=== PATIENT | male | born 1955 ===

== ENCOUNTER 2025-05-28 21:18 | Inpatient (IN) | payer OTHER, SELFPAY ==
--- OUTSIDE RECORDS SUMMARY | 2025-05-28 21:27 | XMS_ITS | Clinical Summary ---
Author Organization [facility] Address [address] [place] [address] Care Team Providers Care Manager Code Name Role Phone Azul Kimble Primary Care Provider [phone]- [phone] Social History Tobacco Use Types Packs/Day Years Used Date Smoking Tobacco: Never Assessed Sex and Gender Information Value Date Recorded Sex Assigned at Male 03/23/2024 1:49 PM EDT Legal Sex Male 4:58 AM EST Gender Identity Male 03/23/2024 1:49 PM EDT Sexual Orientation Not on file Plan of Treatment Not on file Insurance [place] Member Subscriber Plan / Payer (Ef fective 2024-Present) Name:Gm Camilo Relation to Subscriber:Self Name:Gm Camilo Payer ID:Not on file Group ID:Not on file Type:Other Address: ATTENTION: CLAIMS [address] [place] [id number] [place] [address] [facility] [place] [facility] SENIOR Care Teams Manager Code Relationship Specialty Start Date End Date Azul Kimble PA [address] [place] [id number] PCP - General Physician Paper Mill Supervisor 03/23/24
[2025-05-28 21:46] VITALS: BMI 26.7
[2025-05-28 21:47] VITALS: BP 126/75; PULSE 64; RESP 16; TEMP 36; O2SAT 97
--- NOTE | 2025-05-29 01:18 | PC.NURSE ---
Admission Note Gm Camilo, a 69-year-old man, was presented to [facility] ED via ambulance on Section-12A, from his apartment with chief complaints of erratic behavior and paranoid delusion thinking police are after him for murder investigation that he didn?t commit. EMS found a patient agitated, disheveled, and self care deficit. The patient has a medical and psychiatric history of? 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 Gm arrived on our unit with EMS on strecher at 2034 on 05/28/25, Section- 12B, with an admitting diagnosis of? MDD. He is a full-code. He is alert and oriented, times four. Behaviour pleasant but appears frustrated. Thought content logical/clear, thought process clear. Mood depressed. Affect flat. Denied SI/HI/AVH, depression, and anxiety. Skin assessed skin abrasion on Left-elbow/bilateral knee/left palm from fall.? Med reconciliation was completed based on a pharmacy claim history and medical record/pending provider?s approval. He is not on any psychotropic medication.? He is independent of ambulation and ADL care. VSS. Labs unremarkable. Gm refused to sign a treatment plan, safety tool, belonging list, and release paper. Contraband searched. Gm is on for 5-minutes for a safety check.
--- NOTE | 2025-05-29 08:24 | HO.PM.IMCN ---
History of Present Illness Data of Consult Service Date: 05/29/25 Primary Care Provider: Isabel Physician HPI Reason for consult: Medical consult 69-year-old male with a past medical history of HIV with HIV related illnesses including Kaposi sarcoma, rectal CA, chronic kidney disease, hyperlipidemia, history of GI bleed rectal CA and depression. There was a leak coming from the patient's home and when they tried to gain entry into his house he was found to be hiding and agitated. There was a concern for his safety in the he was placed on a section 12 and brought to [facility] Emergency room for further evaluation. He is admitted to [facility] for stabilization. Notably patient was reporting that he was misdiagnosed with HIV, and reports that he was not taking medications however there were recent refills were his HIV regime. CT head was negative for any acute pathology. Chest x-ray was negative for any acute abnormality. Basic metabolic panel without any evidence of imbalance, LFTs were within normal limits. CBC was within normal limits. Negative blood alcohol level. His ESR and CRP within normal limits. Negative for syphilis. On exam he has no concerns except for the abrasions at he has on both knees in his hands from a fall. Wishes to see a wound nurse regarding this. He denies any shortness of breath, dizziness, lightheadedness or any other concerning symptoms. Reports that he has not had breakfast, reported to nursing. Review of Systems Review of Systems: Denies any shortness of breath, chest pain, palpitations, dizziness, lightheadedness, headaches, dysuria, abdominal pain or discomfort, nausea, vomiting or diarrhea. Denies Chills, body aches, muscle aches, fatigue or weight loss. PMFSH Social History Household Members: None Housing: Apartment Do you presently have visiting nurse or other home services: No Patient Tobacco Use Status: Never used Tobacco e-Cigarette/Vaping Use: Never Used Have you been hit, kicked, punched, or otherwise hurt by someone within the past year? If so, by whom?: No Do you feel safe in your current relationship?: No Is there a partner from a previous relationship who is making you feel unsafe now?: No Are you made to feel afraid or neglected: No Advance Directives: No Advance Directives Information Provided: No Do you have a plan to hurt others: No Plan Recently lost weight without trying: Unsure How much weight loss: Unsure Eating poorly because of decreased appetite: No Nutrition screen score: 4 Nutrition Risks: No Nutritional Risk Poor oral hygiene: No Meds Allergies Allergy/AdvReac Type Severity Reaction Status Date / Time lamivudine AdvReac Severe Rash Verified 05/28/25 21:26 nelfinavir AdvReac Severe Gastrointestinal Verified 05/28/25 21:27 Upset sulfamethoxazole (From AdvReac Severe Gastrointestinal Verified 05/28/25 21:29 Sulfamethoxazole-Trimethoprim) Upset trimethoprim (From AdvReac Severe Gastrointestinal Verified 05/28/25 21:29 Sulfamethoxazole-Trimethoprim) Upset zidovudine AdvReac Severe Rash Verified 05/28/25 21:26 efavirenz AdvReac Confusion Verified 05/28/25 21:25 Active Medications: Current Medications Acetaminophen (Acetaminophen 325 Mg Tablet) 650 mg PO Q6H PRN PRN Reason: Headache/Pain, Scale 1-10 Acyclovir (Acyclovir 800 Mg Tablet) 800 mg PO BID CAMERON Al Hydroxide/Mg Hydroxide (Magnesium Hydrox/Alum Hydrox 30 Ml Oral.Susp) 30 ml PO Q6H PRN PRN Reason: Heartburn/Nausea Dolutegravir Sodium (Dolutegravir Sodium 50 Mg Tablet) 50 mg PO DAILY CAMERON Emtricitabine/Tenofovir (Emtricitabin/Tenofovir Df 200/300 Tablet) 1 tab PO DAILY CAMERON Magnesium Hydroxide (Milk Of Magnesia 30 Ml Oral.Susp) 30 ml PO DAILY PRN PRN Reason: Constipation Trazodone HCl (Trazodone Hcl 50 Mg Tablet) 50 mg PO BEDTIME MRX1 PRN PRN Reason: Insomnia Home Medications ?Medication ?Instructions ?Recorded ?Confirmed ?Last Taken ?Type acyclovir 800 mg tablet 800 mg PO BID 05/28/25 05/28/25 05/23/25 08:00 History dolutegravir 50 mg tablet (Tivicay) 50 mg PO DAILY 05/28/25 05/28/25 05/23/25 History emtricitabine 200 mg-tenofovir 1 tab PO DAILY 05/28/25 05/28/25 05/23/25 History disoproxil fumarate 300 mg tablet Physical Exam Vital Signs and Narrative: Vital Signs: Last Vital Signs Temp 96.8 F 05/28/25 21:47 Pulse 64 05/28/25 21:47 Resp 16 05/28/25 21:47 BP 126/75 05/28/25 21:47 Pulse Ox 97 05/28/25 21:47 O2 Del Method Room Air 05/28/25 21:47 BMI result Body Mass Index 26.7 CONST: Alert and oriented, in NAD. Well nourished HEENT: Normocephalic, atraumatic, MMM, Eyes clear, Neck supple RESP: Lungs clear, RRR even and regular HEART:,RRR, S1, S2. No murmur, no edema GI:Abdomen Soft NT, ND. + BS times four :Deferred SKIN: Warm dry and intact, abrasions noted to right and left knee, bilateral hands and diallo NEURO:CN II-XII Intact bilaterally, Sensation intact. Speech clear PSYCH: Normal affect Assessment and Plan (1) Stage 3 chronic kidney disease: Status: Acute Plan 69-year-old male with past medical history of chronic kidney disease stage 3, HIV with HIV related illnesses including Kaposi sarcoma, rectal CA, hyperlipidemia, history of GI bleed and depression presented to [facility] ER on a section 12 after unspecified psychosis. Depression with psychosis Treatment per psychiatric team HIV Well controlled based on undetectable via, CD4 count in the 300s. Intermittently declines as a RT however he has undetectable level. Continue current regime History of anal cancer treated in the past-treated If patient's renal function worsens consider consult with ID regarding a change in regimen if needed Chronic kidney disease stage III Baseline creatinine 1 0.1-1.2 Continue to follow, avoid nephrotoxins History of hyperlipidemia Lipid panel within acceptable range Not on medication currently Thank you for allowing me to participate in the care of this patient. Will follow as needed, please notify medical provider with any changes in condition or concerns.
[2025-05-29 08:25] LABS: Hemoglobin A1C 116.1522 umol/L; Total Hemoglobin (HGBA1C) 3871.0509 umol/L
[2025-05-29 09:12] LABS: Cholesterol 176 mg/dL (<200); HDL Cholesterol 30 mg/dL (>40); Magnesium 2.2 mg/dL (1.6-2.6); Triglycerides 139 mg/dL (<150)
[2025-05-29 09:18] LABS: Free T4 (Free Thyroxine) 1.00 ng/dL (0.71-1.85); Thyroid Stimulating Hormone 1.50 uIU/mL (0.32-4.0)
[2025-05-29 09:27] LABS: Folate 7.5 ng/mL (> or = 4.0); Vitamin B12 389 pg/mL (200-900)
[2025-05-29 09:28] VITALS: BP 162/81; PULSE 66; RESP 18; TEMP 36.6; O2SAT 96
[2025-05-29] MEDS: Emtricitabin/Tenofovir DF 200/300 TABLET 1 TAB PO (09:30)
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
[2025-05-29 20:00] VITALS: BP 96/68; PULSE 81; RESP 16; TEMP 35.6; O2SAT 98
[2025-05-30 08:00] VITALS: BP 135/71; PULSE 65; RESP 16; TEMP 36.7; O2SAT 96
[2025-05-30] MEDS: Emtricitabin/Tenofovir DF 200/300 TABLET 1 TAB PO (10:11)
--- NOTE | 2025-05-30 15:53 | HO.WOUND ---
Wound Consult: Initial 69yr old?male admitted to [facility] on 05/28/25 - See progress notes and H&P for detailed history.? Wound consult placed for abrasions from a fall prior to admission.? Arrival to bedside patient was not agreeable to assessment and photo documentation.? He reports the abrasions were recently dressing with bandaids and he does not need them checked again. Spoke to direct care nurse - she reports wounds were assessed and cleansed earlier today, appear superficial and clean , no concerns at this time. Bandaids applied to wounds to Left Elbow, Left Palm and Bilateral knees. No new topical recommendations needed at this time. Please reconsult inpatient wound care nurse if assessment is needed or wounds worsen.
--- NOTE | 2025-05-30 16:32 | P.PNPSI_ITS ---
Subjective Subjective Date of Service: 05/30/25 Reason For Visit: unspecified psychotic disorder Subjective Notes: Section 12B Interim History: Pt slept through the night. He would not come out of this room for meals due to paranoid ideas. He was hesitant to eat food brought to him but did eat. He denies SI/HI. No aggression towards self or others. declines risperidone, but taking antiretroviral medications. although pt symptomatic no safety concerns at this time to file against his will at the time sect 12b is up. Review of Systems Review of Systems He denies chest pain No SOB No abdominal pain No diarrhea or constipation laceration on both knees- covered with bandage. Mental Status Exam Mental Status Exam Narrative: Appearance: wearing hospital gown, fair hygiene, in NAD Behavior: cooperative, but guarded Psychomotor: no agitation or retardation noted Speech: clear, normal rate/rhythm/volume, spontaneous TP: linear TC: persecutory delusions, hearing press outside of the hospital Mood: I shouldn't be here Affect: brightens at times SI: denies HI: denies VH/AH: hearing press outside talking about him Delusions: persecutory delusions, ideas of reference Insight/judgment: impaired x 2. Memory/cog: alert, oriented x 3 not oriented to situation, thinks he has been fr osiel by police to look like he has a mental illness. Diagnostics Vital Signs (24Hr): Vital Signs - 24 hr 05/29/25 20:00 05/30/25 08:00 Temperature 96.1 F L 98.1 F Pulse Rate 81 65 Respiratory Rate 16 16 Blood Pressure 96/68 135/71 Pulse Oximetry 98 96 Oxygen Delivery Method Room Air Room Air BMI result Body Mass Index 26.7 Labs Labs: Laboratory Results - last 48 hr 05/29/25 07:16 Estimat Average Glucose 94 Hemoglobin A1c % 4.9 Magnesium 2.2 Triglycerides 139 Cholesterol 176 LDL Cholesterol, Calc 119 H HDL Cholesterol 30 L Vitamin B12 389 Folate 7.5 TSH 1.50 Free T4 1.00 Medications Medications Current Medications Acetaminophen (Acetaminophen 325 Mg Tablet) 650 mg PO Q6H PRN PRN Reason: Headache/Pain, Scale 1-10 Acyclovir (Acyclovir 800 Mg Tablet) 800 mg PO BID CAMERON Last Admin: 05/30/25 10:11 Dose: 800 mg Al Hydroxide/Mg Hydroxide (Magnesium Hydrox/Alum Hydrox 30 Ml Oral.Susp) 30 ml PO Q6H PRN PRN Reason: Heartburn/Nausea Dolutegravir Sodium (Dolutegravir Sodium 50 Mg Tablet) 50 mg PO DAILY [facility] Last Admin: 05/30/25 10:11 Dose: 50 mg Emtricitabine/Tenofovir (Emtricitabin/Tenofovir Df 200/300 Tablet) 1 tab PO DAILY CAMERON Last Admin: 05/30/25 10:11 Dose: 1 tab Magnesium Hydroxide (Milk Of Magnesia 30 Ml Oral.Susp) 30 ml PO DAILY PRN PRN Reason: Constipation Risperidone (Risperidone 1 Mg Tablet) 1 mg PO BID [facility] Trazodone HCl (Trazodone Hcl 50 Mg Tablet) 50 mg PO BEDTIME MRX1 PRN PRN Reason: Insomnia Allergies Allergies Allergy/AdvReac Type Severity Reaction Status Date / Time lamivudine AdvReac Severe Rash Verified 05/28/25 21:26 nelfinavir AdvReac Severe Gastrointestinal Verified 05/28/25 21:27 Upset sulfamethoxazole (From AdvReac Severe Gastrointestinal Verified 05/28/25 21:29 Sulfamethoxazole-Trimethoprim) Upset trimethoprim (From AdvReac Severe Gastrointestinal Verified 05/28/25 21:29 Sulfamethoxazole-Trimethoprim) Upset zidovudine AdvReac Severe Rash Verified 05/28/25 21:26 efavirenz AdvReac Confusion Verified 05/28/25 21:25 Assessment & Plan Assessment & Plan (1) Unspecified psychosis: Status: Acute Code(s): F29 - Unspecified psychosis not due to a substance or known physiological condition Plan Mr. Camilo is a 69 year-old male with persecutor delusions and auditory hallucinations who was brought to [facility] due to presenting with ideas of police attempting to arrest him for crime he has not commit. He reports AH. He denies SI/HI. He denies any hx of psychiatric treatment. Symptoms of paranoia at least present for the past 2 years. We do not have collateral information of friends or family who has known him for longer period of time. I do suspect these are not new symptoms and he presents with most likely with schizophrenia (he does report he has been a psychic hearing voices and getting messages since he was young). We discussed risks, benefits and alternative treatment options. He declines taking any medication, especially for psychiatric reasons. He does not present with s/s of being malnourished. Although it is unclear whether he was taking medications for HIV, which he now questions whether it is an accurate dx his current viral load is undetectable. Per Denise, pt does not have a hx of violence. Per Denise, he has isolated himself more recently. [place] warning- given and shows understanding. PLAN 05/30 continue tx. plan to d/c tomorrow when 3 day is up. Reason for continued inpatient stay Substantial Risk for: inability to function Time Spent With Patient Time: Total time managing care of this patient today ____ minutes.
[2025-05-30 20:00] VITALS: BP 114/66; PULSE 63; RESP 18; TEMP 36.3; O2SAT 96
[2025-05-31 08:00] VITALS: BP 116/78; PULSE 81; RESP 16; TEMP 36.3; O2SAT 97
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
== END 2025-05-31 10:38 | disposition home or self-care (01) | DRG 885 ==
PROVIDERS: Clinical Nurse Specialist Psychiatric/Mental Health, Adult; Admitting Provider Psychiatry & Neurology Psychiatry; Visit Provider Psychiatry & Neurology Psychiatry
DX: F20.9 Schizophrenia, unspecified (principal); B20 Human immunodeficiency virus [HIV] disease; F29 Unspecified psychosis not due to a substance or known physiological condition; N18.30 Chronic kidney disease, stage 3 unspecified; E78.5 Hyperlipidemia, unspecified; Z79.899 Other long term (current) drug therapy
CPT/HCPCS: 36415; 80061; 82607; 82746; 83036; 83735; 84439; 84443

== ENCOUNTER → 2025-05-28 21:18 | Outpatient (BNV) | payer OTHER, SELFPAY | PROVIDERS: Admitting Provider Psychiatry & Neurology Psychiatry; Visit Provider Nurse Practitioner Family | DX: N18.30 Chronic kidney disease, stage 3 unspecified (principal) | CPT/HCPCS: 99221 ==

== ENCOUNTER → 2025-05-28 21:18 | Outpatient (BNV) | payer OTHER, SELFPAY | PROVIDERS: Admitting Provider Psychiatry & Neurology Psychiatry; Visit Provider Social Worker | DX: F29 Unspecified psychosis not due to a substance or known physiological condition (principal) | CPT/HCPCS: 90792; 99232; 99238 ==